=== PATIENT | female | born 1940 | race Hispanic/Latino ===

== ENCOUNTER 2020-07-18 12:30 | Inpatient (IN) ==
[2020-07-18] MEDS ORDERED: ACETAMINOPHEN 325 MG TABLET PO PRN (16:21)
[2020-07-18] MEDS ORDERED: AZITHROMYCIN 250 MG TABLET PO STA (16:21)
[2020-07-18] MEDS ORDERED: REMDESIVIR 200 MG in NORMAL SALINE 210 ML IV ONE (16:32)
[2020-07-18 17:50] LABS: Hematocrit 40.8 % (37.0-47.0); Hemoglobin 13.3 gm/dL (12.5-16.0); Mean Cell Volume 97.8 fl (78-100); Mean Corpuscular Hemoglobin 31.9 pg (27-31); Mean Corpuscular Hgb Conc 32.6 g/dl (32-36); Mean Platelet Volume 10.3 fl (8-12.5); Neutrophil # 3.7 K/mm3 (1.3-6.0); Neutrophil % 65.6 % (42-75.0); Platelet Count 155 K/mm3 (150-450); Red Blood Count 4.17 M/mm3 (4.2-5.4); White Blood Count 5.7 K/mm3 (4.0-10.5)
[2020-07-18] MEDS: ENOXAPARIN SODIUM 40 MG/0.4 ML SYRG SC SCH (17:55)
[2020-07-18] MEDS: DEXAMETHASONE SODIUM PHOSP/PF 10 MG/ML VIAL IV SCH (18:08)
[2020-07-18 18:15] LABS: Anion Gap 16.2 mmol/L (6.8-13.8); BUN/Creatinine Ratio 18.8 (9.0-21.6); Bilirubin, Total 0.7 mg/dL (0.0-1.1); Ca. Corrected For Albumin 9.3 mg/dL (8.4-10.2); Calcium * 8.8 mg/dL (7.9-10.9); Potassium 4.2 mmol/L (3.4-4.6); Total Protein 7.2 gm/dL (6.2-8.2)
--- NOTE | 2020-07-18 23:23 | HP ---
Chief Complaint - Chief Complaint Date of Service: 07/18/20 Time of Service: 17:00 Chief Complaint: Shortness of breath History of Present Illness: Brittni is a 79 yo female presenting to the respiratory clinic today for worsening shortness of breath. She reports a week ago she started having diarrhea and a cough. Since then she has progressively been worse with shortness of breath, weakness, decreased appetite, and fatigue. Today the shortness of breath was bad enough she came to the respiratory clinic. There she was found to be hypoxic with ambulation. They called the medicine publications sales representative for admission. Prior to admission she required rapid COVID testing which was positive. Medical History (Last Reviewed 07/18/20 @ 19:23 by Arpan Webber RN) History of hormone replacement therapy Onset Date: Unknown Hypertension Onset Date: Unknown Hypothyroidism Onset Date: Unknown Osteoarthritis Onset Date: Unknown Stress incontinence Onset Date: Unknown Surgical History: Surgical History (Last Reviewed 07/18/20 @ 19:24 by Arpan Webber RN) H/O arthroscopic knee surgery Onset Date: 2006 left H/O arthroscopy of right knee Onset Date: Unknown July 2014, Dr. Daniels H/O bladder repair surgery Onset Date: 1977 H/O colonoscopy Onset Date: 06/2017 H/O: hysterectomy Onset Date: Unknown History of appendectomy Onset Date: Unknown History of cholecystectomy Onset Date: Unknown History of knee replacement procedure of left knee Onset Date: 2006 S/P repair of ligament of ankle Onset Date: 1990 Family History: Family History (Last Reviewed 07/18/20 @ 19:24 by Arpan Webber RN) Brother Diabetes Father Heart disease Social History: (Last Updated 07/18/20 @ 19:25 by Arpan Webber RN) Social History: adopted: No foster care: No care home: No Marital status: / lives independently: Yes household members: spouse number of children: 2 caregiver/support person: No current occupational status: retired current occupational exposures/hazards: No Previous occupational history: office worker Highest level of school completed/degree received: high school graduate Service: No Tobacco: Smoking Status: Never smoker Alcohol: alcohol intake: never Substance Use: substance use type: does not use Dietary Habits: caffeine: Yes caffeine comment: rarely Type: coffee Review Of Systems (GEN) - Review of Systems Generalized/Overall Review: Present: Weakness, Chills, Fatigue EENTM: Present: No Symptoms Reported Respiratory: Present: Cough, Shortness of Breath Cardiac: Absent: Chest Pain, Edema, Palpitations Abdominal: Present: Nausea, Diarrhea. Absent: Vomiting, Abdominal Pain Genitourinary: Absent: Burning, Frequency Musculoskeletal: Present: No Symptoms Reported Neurological: Present: Weakness. Absent: Headache Skin: Present: No Symptoms Reported Endocrine: Present: No Symptoms Reported Misc: All systems neg except as marked Allergies/Adverse Reactions: Allergies Allergy/AdvReac Type Severity Reaction Status Date / Time Sulfa (Sulfonamide Allergy RASH Verified 07/18/20 12:35 Antibiotics) Home Medications: HOME MEDICATIONS bimatoprost 0.01 % eye drops 1 drp OP DAILY 02/19/18 [Last Taken Unknown] calcium carbonate-vitamin D3 600 mg calcium-200 unit capsule cap PO DAILY cap 02/19/18 [Last Taken Unknown] multivitamin 1 tab PO DAILY 02/19/18 [Last Taken Unknown] vitamin B complex 1 tab PO DAILY 02/19/18 [Last Taken Unknown] cholestyramine (with sugar) 4 gram powder for susp in a packet 4 g PO DAILY PRN 05/18/19 [Last Taken Unknown] lactobacillus combination no.8 3 billion cell capsule 3,000 mmu cells PO DAILY 08/26/19 [Last Taken Unknown] gabapentin 300 mg capsule 300 mg PO TID #270 cap 12/06/19 [Last Taken Unknown] meclizine 25 mg tablet 25 mg PO TID-QID PRN #100 tab 01/20/20 [Last Taken Unkn own] nabumetone 500 mg tablet 500 mg PO BID #180 tab 03/20/20 [Last Taken Unknown] ramipril 10 mg capsule 20 mg PO DAILY #180 cap 03/20/20 [Last Taken Unknown] levothyroxine 50 mcg tablet 50 mcg PO DAILY #90 tab 05/15/20 [Last Taken Unknown] atenolol 100 mg tablet 100 mg PO DAILY #90 tab 06/12/20 [Last Taken Unknown] Exam - Exam Vital Signs: Vital Signs - Last Taken Temp 36.2 C 07/18/20 21:51 Pulse 67 07/18/20 21:51 Resp 20 07/18/20 21:51 BP 162/81 H 07/18/20 21:51 Pulse Ox 99 07/18/20 22:50 Constitutional: Present: Alert, Oriented x3, Cooperative ENT Exam: Present: hearing grossly normal Eye Exam: bilateral eye: normal inspection Respiratory: Present: rales - bilateral Cardiovascular/Chest: Present: regular rate, rhythm, no murmur Peripheral Pulses: radial (R): 2+, radial (L): 2+ Abdomen: Present: Normal bowel sounds, soft, nontender, nondistended, no rebound tenderness Skin Exam: Present: normal color, warm/dry, no cyanosis Neurologic: Present: alert, normal mood/affect, oriented x 3 Appearance: Present: appropriate appearance, appropriate insight, neat Eye contact: Present: cooperative, good eye contact, normal speech Thoughts: Present: normal thought pattern, no apparent hallucination Diagnostic Studies: Abnormal Lab Results 07/18/20 07/18/20 Range/Units 17:34 17:39 RBC 4.17 L (4.2-5.4) M/mm3 MCH 31.9 H (27-31) pg Immature Gran % (Auto) 0.50 H (0.001-0.429) % Monocytes % 9.4 H (0.0-9) % Lymphocytes # 1.32 L (1.5-3.5) k/mm3 Carbon Dioxide 23.0 L (24-32.6) mmol/L Anion Gap 16.2 H (6.8-13.8) mmol/L AST 70 H (0-48) U/L Albumin 3.0 L (3.4-5.0) gm/dl Laboratory Results WBC 5.7 K/mm3 (4.0-10.5) 07/18/20 17:34 RBC 4.17 M/mm3 (4.2-5.4) L 07/18/20 17:34 Hgb 13.3 gm/dL (12.5-16.0) 07/18/20 17:34 Hct 40.8 % (37.0-47.0) 07/18/20 17:34 MCV 97.8 fl (78-100) 07/18/20 17:34 MCH 31.9 pg (27-31) H 07/18/20 17:34 MCHC 32.6 g/dl (32-36) 07/18/20 17:34 RDW 13.0 % (11.5-14.0) 07/18/20 17:34 Plt Count 155 K/mm3 (150-450) 07/18/20 17:34 MPV 10.3 fl (8-12.5) 07/18/20 17:34 Immature Gran % (Auto) 0.50 % (0.001-0.429) H 07/18/20 17:34 Immature Gran # (Auto) 0.03 K/mm3 (0.000-0.0310) 07/18/20 17:34 Neutrophils % 65.6 % (42-75.0) 07/18/20 17:34 Lymphocytes % 23.4 % (20-51) 07/18/20 17:34 Monocytes % 9.4 % (0.0-9) H 07/18/20 17:34 Eosinophils % 0.9 % (0.0-3.0) 07/18/20 17:34 Basophils % 0.2 % (0.0-1.0) 07/18/20 17:34 Nucleated RBC % 0.0 k/mm3 (0-1) 07/18/20 17:34 Neutrophils # 3.7 K/mm3 (1.3-6.0) 07/18/20 17:34 Lymphocytes # 1.32 k/mm3 (1.5-3.5) L 07/18/20 17:34 Monocytes # 0.5 k/mm3 (0.0-1.0) 07/18/20 17:34 Eosinophils # 0.1 k/mm3 (0.0-0.7) 07/18/20 17:34 Absolute Basophils 0.0 k/mm3 (0.0-0.1) 07/18/20 17:34 Sodium 132 mmol/L (132-142) 07/18/20 17:39 Plasma Sodium 132 mmol/L (130-142) 07/18/20 17:39 Potassium 4.2 mmol/L (3.4-4.6) 07/18/20 17:39 Chloride 97 mmol/L (97-106) 07/18/20 17:39 Carbon Dioxide 23.0 mmol/L (24-32.6) L 07/18/20 17:39 Anion Gap 16.2 mmol/L (6.8-13.8) H 07/18/20 17:39 BUN 16 mg/dL (3-23) 07/18/20 17:39 Creatinine 0.85 mg/dL (0.4-1.4) 07/18/20 17:39 Est GFR (Non-Af Amer) 69 mL/min (60-130) 07/18/20 17:39 BUN/Creatinine Ratio 18.8 (9.0-21.6) 07/18/20 17:39 Random Glucose 110 mg/dL (70-110) 07/18/20 17:39 Calcium 8.8 mg/dL (7.9-10.9) 07/18/20 17:39 Calcium Adj for Albumin 9.3 mg/dL (8.4-10.2) 07/18/20 17:39 Total Bilirubin 0.7 mg/dL (0.0-1.1) 07/18/20 17:39 AST 70 U/L (0-48) H 07/18/20 17:39 ALT 54 U/L (19-67) 07/18/20 17:39 Alkaline Phosphatase 65 U/L (50-170) 07/18/20 17:39 Total Protein 7.2 gm/dL (6.2-8.2) 07/18/20 17:39 Albumin 3.0 gm/dl (3.4-5.0) L 07/18/20 17:39 Assessment/Plan - Narrative Narrative: Brittni has acute respiratory failure with oxygen dropping to 88% on room air with activity and was noted to have oxygen that would dropped down to 88% even with rest while waiting for her COVID test to return. She was placed in the ER triage room and placed on 2lpm of oxygen. She has COVID19 pneumonia and will be admitted to acute inpatient. Will place on 2lpm and attempt to wean with treatment back to room air. Will treat with azithromycin, rocophin, dexamethasone, and Veklury. - Assessment/Plan (1) Acute respiratory failure due to COVID-19 Problem: Acute (2) Pneumonia due to COVID-19 virus Problem: Acute
[2020-07-19 06:52] LABS: Anion Gap 13.6 mmol/L (6.8-13.8); BUN/Creatinine Ratio 17.6 (9.0-21.6); Bilirubin, Total 0.4 mg/dL (0.0-1.1); Ca. Corrected For Albumin 9.2 mg/dL (8.4-10.2); Calcium * 8.7 mg/dL (7.9-10.9); Carbon Dioxide 26.4 mmol/L (24-32.6); Total Protein 7.4 gm/dL (6.2-8.2)
[2020-07-19] MEDS ORDERED: MECLIZINE HCL 25 MG TABLET PO PRN (09:22)
--- NOTE | 2020-07-19 09:52 | PN ---
Subjective - Date and Time Seen Date: 07/19/20 Time: 09:49 Subjective Narrative: Brittni reports feeling a little better, but remains extremely short of breath and has tachycardia with ambulation. She has been weaned to room air at rest. No fever. Objective - Vitals Vitals: Last Vital Signs Temp 35.6 C L 07/19/20 06:45 Pulse 65 07/19/20 06:45 Resp 20 07/19/20 06:45 BP 134/59 07/19/20 06:45 Pulse Ox 92 L 07/19/20 06:45 - Abnormal Lab Findings Abnormal Lab Findings: Abnormal Lab Results 07/18/20 07/18/20 07/19/20 Range/Units 17:34 17:39 06:34 RBC 4.17 L (4.2-5.4) M/mm3 MCH 31.9 H (27-31) pg Immature Gran % (Auto) 0.50 H (0.001-0.429) % Monocytes % 9.4 H (0.0-9) % Lymphocytes # 1.32 L (1.5-3.5) k/mm3 Carbon Dioxide 23.0 L (24-32.6) mmol/L Anion Gap 16.2 H (6.8-13.8) mmol/L Random Glucose 140 H (70-110) mg/dL AST 70 H 56 H (0-48) U/L Albumin 3.0 L 3.0 L (3.4-5.0) gm/dl - Exam Constitutional: Present: Alert, Oriented x3, Cooperative ENT Exam: Present: hearing grossly normal Respiratory: Present: rales Cardiovascular/Chest: Present: no murmur, tachycardia Abdomen: Present: Normal bowel sounds, soft, nontender, nondistended Skin Exam: Present: normal color, warm/dry, no cyanosis Appearance: Present: appropriate appearance, appropriate insight Eye contact: Present: cooperative, good eye contact, normal speech Thoughts: Present: normal thought pattern, no apparent hallucination Assessment/Plan Plan Narrative: Brittni is improved and on room air at rest. She has respiratory distress with ambulation and is not ready for discharge to home today. Will continue current treatment. Will shoot to discharge to home tomorrow with continued treatment as outpatient. Will monitor oxygen requirements with activity. - Problems/Diagnosis (1) Acute respiratory failure due to COVID-19 Problem: Acute (2) Pneumonia due to COVID-19 virus Problem: Acute
[2020-07-19] MEDS: LEVOTHYROXINE SODIUM 50 MCG TABLET PO SCH (10:13)
[2020-07-19] MEDS: LACTOBACILLUS ACIDOPHILUS 1 EACH CAPSULE PO SCH (10:13)
[2020-07-19] MEDS: AZITHROMYCIN 250 MG TABLET PO SCH (10:13)
[2020-07-19] MEDS: ENALAPRIL MALEATE 20 MG TABLET PO SCH (10:13)
[2020-07-19] MEDS: ATENOLOL 100 MG TABLET PO SCH (10:13)
[2020-07-19] MEDS: BIMATOPROST 25 DROP BTL OP SCH (10:13)
[2020-07-19] MEDS: DEXAMETHASONE SODIUM PHOSP/PF 10 MG/ML VIAL IV SCH (10:14)
[2020-07-19] MEDS: GABAPENTIN 300 MG CAPSULE PO SCH ×2 (13:19→16:44)
[2020-07-19] MEDS: ENOXAPARIN SODIUM 40 MG/0.4 ML SYRG SC SCH (16:43)
[2020-07-19] MEDS: REMDESIVIR 100 MG in NORMAL SALINE 230 ML IV SCH (19:58)
[2020-07-20] MEDS: LEVOTHYROXINE SODIUM 50 MCG TABLET PO SCH (06:33)
[2020-07-20 07:05] LABS: Albumin * 2.7 gm/dl (3.4-5.0); Anion Gap 12.5 mmol/L (6.8-13.8); BUN/Creatinine Ratio 24.7 (9.0-21.6); Bilirubin, Total 0.3 mg/dL (0.0-1.1); Calcium * 8.3 mg/dL (7.9-10.9); Carbon Dioxide 26.3 mmol/L (24-32.6); Potassium 3.8 mmol/L (3.4-4.6); Total Protein 6.8 gm/dL (6.2-8.2)
[2020-07-20] MEDS: AZITHROMYCIN 250 MG TABLET PO SCH (08:21)
[2020-07-20] MEDS: ATENOLOL 100 MG TABLET PO SCH (08:21)
[2020-07-20] MEDS: GABAPENTIN 300 MG CAPSULE PO SCH ×3 (08:21→16:44)
[2020-07-20] MEDS: MULTIVITAMINS 1 CAP CAPSULE PO SCH (08:21)
[2020-07-20] MEDS: DEXAMETHASONE SODIUM PHOSP/PF 10 MG/ML VIAL IV SCH (08:21)
[2020-07-20] MEDS: BIMATOPROST 25 DROP BTL OP SCH (08:21)
[2020-07-20] MEDS: ENALAPRIL MALEATE 20 MG TABLET PO SCH (08:21)
[2020-07-20] MEDS: LACTOBACILLUS ACIDOPHILUS 1 EACH CAPSULE PO SCH (08:21)
--- NOTE | 2020-07-20 13:02 | PN ---
Subjective - Date and Time Seen Date: 07/20/20 Time: 10:00 Subjective Narrative: She states she continues to have a cough and shortness of breath with exertion. Objective - Review of Systems Generalized/Overall Review: Denies: Fever Respiratory: Reports: Cough, Shortness of Breath Cardiac: Denies: Chest Pain Abdominal: Denies: Abdominal Pain Misc: All systems neg except as marked - Vitals Vitals: Last Vital Signs Temp 35.4 C L 07/20/20 11:17 Pulse 65 07/20/20 12:47 Resp 20 07/20/20 11:17 BP 136/77 07/20/20 11:17 Pulse Ox 97 07/20/20 11:17 - Abnormal Lab Findings Abnormal Lab Findings: Abnormal Lab Results 07/20/20 Range/Units 06:39 BUN/Creatinine Ratio 24.7 H (9.0-21.6) Random Glucose 128 H (70-110) mg/dL Albumin 2.7 L (3.4-5.0) gm/dl - Exam Constitutional: Present: Alert, Cooperative, Well developed, Well nourished, No distress, Elderly ENT Exam: Present: hearing grossly normal Neck: Present: non-tender, supple. Absent: lymphadenopathy (R), lymphadenopathy (L) Respiratory: Present: lungs clear, no respiratory distress, no accessory muscle use, crackles - Bilateral lung bases, No wheezing. Absent: rhonchi Cardiovascular/Chest: Present: normal peripheral pulses, regular rate, rhythm, no edema, no murmur Abdomen: Present: Normal bowel sounds, soft, nontender Extremity: Present: no pedal edema Skin Exam: Present: normal color, warm/dry Neurologic: Present: alert, normal mood/affect Appearance: Present: appropriate appearance, appropriate insight Eye contact: Present: cooperative Thoughts: Present: normal thought pattern, normal mood /affect Assessment/Plan Plan Narrative: 79-year-old female with a past medical history of hypertension, hypothyroidism, osteoarthritis presents from with COVID-19 pneumonia. She continues to require oxygen supplementation via nasal cannula. She is currently on remdesivir day 2, and azithromycin with ceftriaxone. Disposition is to send her to a [place] [facility] on Wednesday July 24, 2019. Plan #1 continue with remdesivir, azithromycin and ceftriaxone. #2 Taper to baseline oxygen as tolerated #3 disposition planning to [facility] #4 CBC and CMP in the morning - Problems/Diagnosis (1) Pneumonia due to COVID-19 virus Problem: Acute (2) Unstable gait Problem: Chronic (3) Hypothyroidism Problem: Chronic Qualifiers: Hypothyroidism type: acquired Qualified Code(s): E03.9 - Hypothyroidism, unspecified (4) Obesity (BMI 30.0-34.9) Problem: Chronic (5) HTN (hypertension) Problem: Chronic Qualifiers: Hypertension type: essential hypertension Qualified Code(s): I10 - Essential (primary) hypertension (6) Acute respiratory failure due to COVID-19 Problem: Acute
[2020-07-20] MEDS: ENOXAPARIN SODIUM 40 MG/0.4 ML SYRG SC SCH (16:45)
[2020-07-20] MEDS: REMDESIVIR 100 MG in NORMAL SALINE 230 ML IV SCH (19:20)
[2020-07-21] MEDS: LEVOTHYROXINE SODIUM 50 MCG TABLET PO SCH (06:37)
[2020-07-21 07:00] LABS: Albumin * 2.7 gm/dl (3.4-5.0); Anion Gap 12.5 mmol/L (6.8-13.8); Bilirubin, Total 0.4 mg/dL (0.0-1.1); Ca. Corrected For Albumin 8.7 mg/dL (8.4-10.2); Carbon Dioxide 27.2 mmol/L (24-32.6); Potassium 3.7 mmol/L (3.4-4.6); Total Protein 6.6 gm/dL (6.2-8.2)
[2020-07-21 07:01] LABS: Hematocrit 39.8 % (37.0-47.0); Hemoglobin 13.5 gm/dL (12.5-16.0); Mean Cell Volume 94.3 fl (78-100); Mean Corpuscular Hgb Conc 33.9 g/dl (32-36); Mean Platelet Volume 10.4 fl (8-12.5); Neutrophil # 9.1 K/mm3 (1.3-6.0); Neutrophil % 77.7 % (42-75.0); Platelet Count 253 K/mm3 (150-450); Red Blood Count 4.22 M/mm3 (4.2-5.4); Red Cell Distribution Width 12.9 % (11.5-14.0); White Blood Count 11.8 K/mm3 (4.0-10.5)
[2020-07-21] MEDS: MULTIVITAMINS 1 CAP CAPSULE PO SCH (09:08)
[2020-07-21] MEDS: LACTOBACILLUS ACIDOPHILUS 1 EACH CAPSULE PO SCH (09:08)
[2020-07-21] MEDS: AZITHROMYCIN 250 MG TABLET PO SCH (09:08)
[2020-07-21] MEDS: GABAPENTIN 300 MG CAPSULE PO SCH ×3 (09:08→16:35)
[2020-07-21] MEDS: ENALAPRIL MALEATE 20 MG TABLET PO SCH (09:08)
[2020-07-21] MEDS: BIMATOPROST 25 DROP BTL OP SCH (09:09)
[2020-07-21] MEDS: DEXAMETHASONE SODIUM PHOSP/PF 10 MG/ML VIAL IV SCH (09:09)
[2020-07-21] MEDS: ATENOLOL 100 MG TABLET PO SCH (09:09)
[2020-07-21] MEDS: ENOXAPARIN SODIUM 40 MG/0.4 ML SYRG SC SCH (16:34)
--- NOTE | 2020-07-21 16:51 | PN ---
Subjective - Date and Time Seen Date: 07/21/20 Time: 13:51 Subjective Narrative: She feels well today. She feels like her breathing is improving. She is on the appropriate medications. SHe has no concerns today. Waiting for placement Objective - Review of Systems Generalized/Overall Review: Reports: No Symptoms Reported EENTM: Reports: No Symptoms Reported Respiratory: Reports: Shortness of Breath. Denies: Cough Cardiac: Denies: Chest Pain, Edema Abdominal: Reports: No Symptoms Reported Genitourinary Symptoms: Reports: No Symptoms Reported Neurological: Reports: No Symptoms Reported Skin: Reports: No Symptoms Reported Endocrine: Reports: No Symptoms Reported - Vitals Vitals: Last Vital Signs Temp 96.6 C H 07/21/20 14:21 Pulse 61 07/21/20 14:21 Resp 24 H 07/21/20 14:21 BP 128/75 07/21/20 14:21 Pulse Ox 98 07/21/20 14:21 - Abnormal Lab Findings Abnormal Lab Findings: Abnormal Lab Results 07/21/20 07/21/20 Range/Units 06:30 06:30 WBC 11.8 H D (4.0-10.5) K/mm3 MCH 32.0 H (27-31) pg Immature Gran % (Auto) 0.90 H (0.001-0.429) % Immature Gran # (Auto) 0.10 H (0.000-0.0310) K/mm3 Neutrophils % 77.7 H (42-75.0) % Lymphocytes % 12.9 L (20-51) % Neutrophils # 9.1 H (1.3-6.0) K/mm3 BUN/Creatinine Ratio 25.0 H (9.0-21.6) Random Glucose 127 H (70-110) mg/dL Albumin 2.7 L (3.4-5.0) gm/dl - Exam Constitutional: Present: Alert, Oriented x3, No distress, Elderly Respiratory: Present: lungs clear, normal breath sounds Cardiovascular/Chest: Present: regular rate, rhythm. Absent: systolic murmur Abdomen: Present: soft, nontender, nondistended Appearance: Present: appropriate appearance, appropriate insight Eye contact: Present: cooperative, good eye contact Thoughts: Present: normal thought pattern, normal mood /affect Assessment/Plan Plan Narrative: PAtient on appropriate tx for covid PNA, hypoxia improved with o2 via NC. Continue lovenix, decadron. Awaiting placement. Will order PT for weakness. HTN well controlled. - Problems/Diagnosis (1) Pneumonia due to COVID-19 virus Problem: Acute (2) Hypothyroidism Problem: Chronic Qualifiers: Hypothyroidism type: acquired Qualified Code(s): E03.9 - Hypothyroidism, unspecified (3) Obesity (BMI 30.0-34.9) Problem: Chronic (4) HTN (hypertension) Problem: Chronic Qualifiers: Hypertension type: essential hypertension Qualified Code(s): I10 - Essential (primary) hypertension
[2020-07-21] MEDS: REMDESIVIR 100 MG in NORMAL SALINE 230 ML IV SCH (19:44)
[2020-07-22 06:30] LABS: Albumin * 2.6 gm/dl (3.4-5.0); Anion Gap 13.5 mmol/L (6.8-13.8); BUN/Creatinine Ratio 30.8 (9.0-21.6); Bilirubin, Total 0.4 mg/dL (0.0-1.1); Ca. Corrected For Albumin 8.3 mg/dL (8.4-10.2); Calcium * 7.5 mg/dL (7.9-10.9); Carbon Dioxide 25.2 mmol/L (24-32.6); Potassium 3.7 mmol/L (3.4-4.6)
[2020-07-22] MEDS: LEVOTHYROXINE SODIUM 50 MCG TABLET PO SCH (06:31)
[2020-07-22] MEDS: GABAPENTIN 300 MG CAPSULE PO SCH ×3 (08:13→16:52)
[2020-07-22] MEDS: AZITHROMYCIN 250 MG TABLET PO SCH (08:13)
[2020-07-22] MEDS: LACTOBACILLUS ACIDOPHILUS 1 EACH CAPSULE PO SCH (08:13)
[2020-07-22] MEDS: ENALAPRIL MALEATE 20 MG TABLET PO SCH (08:13)
[2020-07-22] MEDS: ATENOLOL 100 MG TABLET PO SCH (08:14)
[2020-07-22] MEDS: MULTIVITAMINS 1 CAP CAPSULE PO SCH (08:14)
[2020-07-22] MEDS: DEXAMETHASONE SODIUM PHOSP/PF 10 MG/ML VIAL IV SCH (08:14)
[2020-07-22] MEDS: BIMATOPROST 25 DROP BTL OP SCH (08:14)
[2020-07-22] MEDS: ENOXAPARIN SODIUM 40 MG/0.4 ML SYRG SC SCH (16:52)
[2020-07-22] MEDS: REMDESIVIR 100 MG in NORMAL SALINE 230 ML IV SCH (19:20)
--- NOTE | 2020-07-23 05:21 | PN ---
Subjective - Date and Time Seen Date: 07/23/20 Time: 10:15 Subjective Narrative: Brittni reports shortness of breath with any activity. She is currently on 2lpm continuous. No fever, chills, nausea, or vomiting. Objective - Vitals Vitals: Last Vital Signs Temp 36.3 C 07/23/20 02:02 Pulse 72 07/23/20 02:02 Resp 19 07/23/20 02:02 BP 157/77 H 07/23/20 02:02 Pulse Ox 92 L 07/23/20 02:02 - Abnormal Lab Findings Abnormal Lab Findings: Abnormal Lab Results 07/22/20 Range/Units 05:40 BUN/Creatinine Ratio 30.8 H (9.0-21.6) Random Glucose 117 H (70-110) mg/dL Calcium 7.5 L (7.9-10.9) mg/dL Calcium Adj for Albumin 8.3 L (8.4-10.2) mg/dL Total Protein 6.0 L (6.2-8.2) gm/dL Albumin 2.6 L (3.4-5.0) gm/dl - Exam Constitutional: Present: Alert, Oriented x3, Cooperative ENT Exam: Present: hearing grossly normal Respiratory: Present: lungs clear, no respiratory distress Cardiovascular/Chest: Present: regular rate, rhythm, no murmur Abdomen: Present: Normal bowel sounds, soft, nontender, nondistended Skin Exam: Present: normal color, warm/dry, no cyanosis Assessment/Plan Plan Narrative: Continue treatment, and continue to wean off of oxygen as able. She will continue to work on strengthening endurance with activity. - Problems/Diagnosis (1) Acute respiratory failure due to COVID-19 Problem: Acute (2) Pneumonia due to COVID-19 virus Problem: Acute
[2020-07-23] MEDS: LEVOTHYROXINE SODIUM 50 MCG TABLET PO SCH (07:21)
[2020-07-23 08:09] LABS: Albumin * 2.8 gm/dl (3.4-5.0); Anion Gap 10.7 mmol/L (6.8-13.8); BUN/Creatinine Ratio 18.1 (9.0-21.6); Bilirubin, Total 0.7 mg/dL (0.0-1.1); Ca. Corrected For Albumin 8.9 mg/dL (8.4-10.2); Calcium * 8.3 mg/dL (7.9-10.9); Carbon Dioxide 29.1 mmol/L (24-32.6); Potassium 3.8 mmol/L (3.4-4.6); Total Protein 7.3 gm/dL (6.2-8.2)
[2020-07-23] MEDS: LACTOBACILLUS ACIDOPHILUS 1 EACH CAPSULE PO SCH (08:59)
[2020-07-23] MEDS: ENALAPRIL MALEATE 20 MG TABLET PO SCH (08:59)
[2020-07-23] MEDS: GABAPENTIN 300 MG CAPSULE PO SCH ×3 (08:59→17:24)
[2020-07-23] MEDS: DEXAMETHASONE SODIUM PHOSP/PF 10 MG/ML VIAL IV SCH (09:00)
[2020-07-23] MEDS: ATENOLOL 100 MG TABLET PO SCH (09:00)
[2020-07-23] MEDS: MULTIVITAMINS 1 CAP CAPSULE PO SCH (09:00)
[2020-07-23] MEDS: BIMATOPROST 25 DROP BTL OP SCH (13:56)
[2020-07-23] MEDS: ENOXAPARIN SODIUM 40 MG/0.4 ML SYRG SC SCH (17:24)
--- NOTE | 2020-07-23 22:00 | PN ---
Subjective - Date and Time Seen Date: 07/23/20 Time: 09:00 Subjective Narrative: Brittni feels better today. She had been increased to 5lpm of oxygen to keep sats >90%. No fever, chills, nausea, vomiting. Eating well. Objective - Vitals Vitals: Last Vital Signs Temp 36 C 07/23/20 17:59 Pulse 67 07/23/20 17:59 Resp 27 H 07/23/20 17:59 BP 115/64 07/23/20 17:59 Pulse Ox 97 07/23/20 17:59 - Abnormal Lab Findings Abnormal Lab Findings: Abnormal Lab Results 07/23/20 Range/Units 07:46 Random Glucose 116 H (70-110) mg/dL Albumin 2.8 L (3.4-5.0) gm/dl - Exam Constitutional: Present: Alert, Oriented x3, Cooperative Respiratory: Present: lungs clear, normal breath sounds Cardiovascular/Chest: Present: regular rate, rhythm, no edema Abdomen: Present: Normal bowel sounds, soft, nontender Skin Exam: Present: normal color, warm/dry, no cyanosis Assessment/Plan Plan Narrative: Still requiring 5lpm of oxygen, but she is feeling well. Will continue attempt to wean from oxygen. She may need discharged to SNF with oxygen for a longer weaning attempt. Continue treatment, no changes today. - Problems/Diagnosis (1) Acute respiratory failure due to COVID-19 Problem: Acute (2) Pneumonia due to COVID-19 virus Problem: Acute
[2020-07-24] MEDS: LEVOTHYROXINE SODIUM 50 MCG TABLET PO SCH (06:55)
[2020-07-24] MEDS: ENALAPRIL MALEATE 20 MG TABLET PO SCH (09:28)
[2020-07-24] MEDS: MULTIVITAMINS 1 CAP CAPSULE PO SCH (09:28)
[2020-07-24] MEDS: GABAPENTIN 300 MG CAPSULE PO SCH ×3 (09:28→16:39)
[2020-07-24] MEDS: ATENOLOL 100 MG TABLET PO SCH (09:28)
[2020-07-24] MEDS: LACTOBACILLUS ACIDOPHILUS 1 EACH CAPSULE PO SCH (09:28)
[2020-07-24] MEDS: DEXAMETHASONE SODIUM PHOSP/PF 10 MG/ML VIAL IV SCH (09:29)
[2020-07-24] MEDS: BIMATOPROST 25 DROP BTL OP SCH (09:29)
--- NOTE | 2020-07-24 12:40 | PN ---
Subjective - Date and Time Seen Date: 07/24/20 Time: 09:45 Subjective Narrative: She states she better since admission. She continues to have a dry cough. She is tolerating her diet. She continues to get more short of breath with activity. Objective - Review of Systems Generalized/Overall Review: Denies: Fever Respiratory: Reports: Cough, Shortness of Breath Abdominal: Denies: Abdominal Pain Misc: All systems neg except as marked - Vitals Vitals: Last Vital Signs Temp 36.2 C 07/24/20 10:40 Pulse 81 07/24/20 10:40 Resp 18 07/24/20 11:20 BP 136/47 07/24/20 10:40 Pulse Ox 97 07/24/20 11:20 - Exam Constitutional: Present: Alert, Cooperative, Well developed, Well nourished, No distress, Elderly ENT Exam: Present: hearing grossly normal Neck: Present: non-tender, supple. Absent: lymphadenopathy (R), lymphadenopathy (L) Respiratory: Present: lungs clear, no respiratory distress, no accessory muscle use, No wheezing. Absent: crackles, rhonchi Cardiovascular/Chest: Present: normal peripheral pulses, regular rate, rhythm, no edema, no murmur Abdomen: Present: Normal bowel sounds, soft, nontender Extremity: Present: no pedal edema Skin Exam: Present: normal color, warm/dry Neurologic: Present: alert, normal mood/affect Appearance: Present: appropriate appearance Eye contact: Present: cooperative Thoughts: Present: normal mood /affect Assessment/Plan Plan Narrative: 79-year-old female with a past medical history of hypertension, hypothyroidism, osteoarthritis presents from with COVID-19 pneumonia. She continues to require oxygen supplementation via nasal cannula. She is currently on remdesivir day 2, and azithromycin with ceftriaxone. She became hypoxic with activity this morning and required 15 L of oxygen. She is currently back down to 5 L of oxygen. She is not stable for discharge to [facility] at this time. We will continue to observe her overnight. Plan #1 She completed a course of remdesivir and azithromycin. She is on ceftriaxone, day 6. #2 Taper to baseline oxygen as tolerated #3 disposition planning to [facility] #4 CBC and CMP in the morning - Problems/Diagnosis (1) Pneumonia due to COVID-19 virus Problem: Acute (2) Unstable gait Problem: Chronic (3) Hypothyroidism Problem: Chronic Qualifiers: Hypothyroidism type: acquired Qualified Code(s): E03.9 - Hypothyroidism, unspecified (4) Obesity (BMI 30.0-34.9) Problem: Chronic (5) HTN (hypertension) Problem: Chronic Qualifiers: Hypertension type: essential hypertension Qualified Code(s): I10 - Essential (primary) hypertension (6) Acute respiratory failure due to COVID-19 Problem: Acute
[2020-07-24] MEDS: ENOXAPARIN SODIUM 40 MG/0.4 ML SYRG SC SCH (16:39)
[2020-07-25] MEDS: LEVOTHYROXINE SODIUM 50 MCG TABLET PO SCH (06:47)
[2020-07-25] MEDS: MULTIVITAMINS 1 CAP CAPSULE PO SCH (08:48)
[2020-07-25] MEDS: GABAPENTIN 300 MG CAPSULE PO SCH ×3 (08:48→16:02)
[2020-07-25] MEDS: LACTOBACILLUS ACIDOPHILUS 1 EACH CAPSULE PO SCH (08:48)
[2020-07-25] MEDS: ATENOLOL 100 MG TABLET PO SCH (08:48)
[2020-07-25] MEDS: DEXAMETHASONE SODIUM PHOSP/PF 10 MG/ML VIAL IV SCH (08:49)
[2020-07-25] MEDS: ENALAPRIL MALEATE 20 MG TABLET PO SCH (08:49)
[2020-07-25] MEDS: BIMATOPROST 25 DROP BTL OP SCH (08:49)
--- NOTE | 2020-07-25 10:03 | DS ---
(1) Pneumonia due to COVID-19 virus Problem: Acute (2) Unstable gait Problem: Chronic (3) Hypothyroidism Problem: Chronic Qualifiers: Hypothyroidism type: acquired Qualified Code(s): E03.9 - Hypothyroidism, unspecified (4) Obesity (BMI 30.0-34.9) Problem: Chronic (5) HTN (hypertension) Problem: Chronic Qualifiers: Hypertension type: essential hypertension Qualified Code(s): I10 - Essential (primary) hypertension (6) Acute respiratory failure due to COVID-19 Problem: Acute Hospital Course: 79-year-old female with a past medical history of hypertension, hypothyroidism, osteoarthritis presents from with COVID-19 pneumonia. She continues to require oxygen supplementation via nasal cannula. She is was started on remdesivir, azithromycin with ceftriaxone. She had one episode of worsening hypoxia with activity and required 15 L of high flow oxygen. Since then she has been stable on 3 to 5 L of oxygen even with activity. She is tolerating her diet. She has completed her course of r emdesivir, azithromycin and ceftriaxone. She is stable to be discharged to [facility] today. She will need skilled therapy for strengthening. She can be weaned down on the oxygen at the correction. The patient remained hospitalized for 1 more day due to staffing issues the correction was not able to take her on July 25, 2020. She had no new events and remained stable overnight. She is stable to be discharged to [facility] today, July 26, 2020. Procedures Performed: none Results and Findings: Lab Pending Results 07/18/20 17:34: WBC 5.7, RBC 4.17 L, Hgb 13.3, Hct 40.8, MCV 97.8, MCH 31.9 H, MCHC 32.6, RDW 13.0, Plt Count 155, MPV 10.3, Immature Gran % (Auto) 0.50 H, Immature Gran # (Auto) 0.03, Neutrophils % 65.6, Lymphocytes % 23.4, Monocytes % 9.4 H, Eosinophils % 0.9, Basophils % 0.2, Nucleated RBC % 0.0, Neutrophils # 3.7, Lymphocytes # 1.32 L, Monocytes # 0.5, Eosinophils # 0.1, Absolute Basophils 0.0 07/18/20 17:39: Sodium 132, Plasma Sodium 132, Potassium 4.2, Chloride 97, Carbon Dioxide 23.0 L, Anion Gap 16.2 H, BUN 16, Creatinine 0.85, Est GFR (Non- Af Amer) 69, BUN/Creatinine Ratio 18.8, Random Glucose 110, Calcium 8.8, Calcium Adj for Albumin 9.3, Total Bilirubin 0.7, AST 70 H, ALT 54, Alkaline Phosphatase 65, Total Protein 7.2, Albumin 3.0 L 07/19/20 06:34: Sodium 138, Plasma Sodium 139, Potassium 4.0, Chloride 102, Carbon Dioxide 26.4, Anion Gap 13.6, BUN 15, Creatinine 0.85, Est GFR (Non-Af Amer) 69, BUN/Creatinine Ratio 17.6, Random Glucose 140 H, Calcium 8.7, Calcium Adj for Albumin 9.2, Total Bilirubin 0.4, AST 56 H, ALT 53, Alkaline Phosphatase 62, Total Protein 7.4, Albumin 3.0 L 07/20/20 06:39: Sodium 140, Plasma Sodium 140, Potassium 3.8, Chloride 105, Carbon Dioxide 26.3, Anion Gap 12.5, BUN 20, Creatinine 0.81, Est GFR (Non-Af Amer) 72, BUN/Creatinine Ratio 24.7 H, Random Glucose 128 H, Calcium 8.3, Calcium Adj for Albumin 9.0, Total Bilirubin 0.3, AST 42, ALT 42, Alkaline Phosphatase 66, Total Protein 6.8, Albumin 2.7 L 07/21/20 06:30: WBC 11.8 H D, RBC 4.22, Hgb 13.5, Hct 39.8, MCV 94.3, MCH 32.0 H, MCHC 33.9, RDW 12.9, Plt Count 253, MPV 10.4, Immature Gran % (Auto) 0.90 H, Immature Gran # (Auto) 0.10 H, Neutrophils % 77.7 H, Lymphocytes % 12.9 L, Monocytes % 8.3, Eosinophils % 0.0, Basophils % 0.2, Nucleated RBC % 0.0, Neutrophils # 9.1 H, Lymphocytes # 1.51, Monocytes # 1.0, Eosinophils # 0.0, Absolute Basophils 0.0 07/21/20 06:30: Sodium 140, Plasma Sodium 140, Potassium 3.7, Chloride 104, Carbon Dioxide 27.2, Anion Gap 12.5, BUN 18, Creatinine 0.72, Est GFR (Non-Af Amer) 83, BUN/Creatinine Ratio 25.0 H, Random Glucose 127 H, Calcium 8.0, Calcium Adj for Albumin 8.7, Total Bilirubin 0.4, AST 33, ALT 37, Alkaline Phosphatase 62, Total Protein 6.6, Albumin 2.7 L 07/22/20 05:40: Sodium 140, Plasma Sodium 140, Potassium 3.7, Chloride 105, Carbon Dioxide 25.2, Anion Gap 13.5, BUN 20, Creatinine 0.65, Est GFR (Non-Af Amer) 93, BUN/Creatinine Ratio 30.8 H, Random Glucose 117 H, Calcium 7.5 L, Calcium Adj for Albumin 8.3 L, Total Bilirubin 0.4, AST 30, ALT 34, Alkaline Phosphatase 66, Total Protein 6.0 L, Albumin 2.6 L 07/23/20 07:46: Sodium 138, Plasma Sodium 138, Potassium 3.8, Chloride 102, Carbon Dioxide 29.1, Anion Gap 10.7, BUN 15, Creatinine 0.83, Est GFR (Non-Af Amer) 70 D, BUN/Creatinine Ratio 18.1, Random Glucose 116 H, Calcium 8.3, Calcium Adj for Albumin 8.9, Total Bilirubin 0.7, AST 27, ALT 33, Alkaline Phosphatase 80, Total Protein 7.3, Albumin 2.8 L Discharge Location: [facility] Disposition: SNF Condition: Stable Level of Care: SNF Discharge Activity: Activity as tolerated Discharge Diet: General/regular food Long Term Therapy: Physical Therapy, Occupation Therapy Referrals: Desiree Walters MD [Primary Care Provider] - Additional Patient Instructions (free text): [facility] SNF for PT and OT to evaluate and treat. Please call and fax discharge information to them. Dr. Walters will do a tele health follow up on August 02 at 2:45 p.m. Continue with oxygen supplementation at 3 to 5 L via nasal cannula. Goal O2 saturation is greater than 90%. Complete Home Medications List: Complete Home Medication List: bimatoprost 0.01 % eye drops 1 drp OP DAILY 02/19/18 multivitamin 1 tab PO DAILY 02/19/18 vitamin B complex 1 tab PO DAILY 02/19/18 cholestyramine (with sugar) 4 gram powder for susp in a packet 4 g PO DAILY PRN 05/18/19 lactobacillus combination no.8 3 billion cell capsule 3,000 mmu cells PO DAILY 08/26/19 gabapentin 300 mg capsule 300 mg PO TID #270 cap 12/06/19 meclizine 25 mg tablet 25 mg PO TID-QID PRN #100 tab 01/20/20 nabumetone 500 mg tablet 500 mg PO BID #180 tab 03/20/20 ramipril 10 mg capsule 20 mg PO DAILY #180 cap 03/20/20 levothyroxine 50 mcg tablet 50 mcg PO DAILY #90 tab 05/15/20 atenolol 100 mg tablet 100 mg PO DAILY #90 tab 06/12/20 Calcium Carb, Citrate/Vit D3 [Calcium + D3 ER Tablet] 1 ea PO DAILY 07/19/20 Forms: Patient Portal Registration
--- NOTE | 2020-07-25 10:36 | PN ---
Subjective - Date and Time Seen Date: 07/25/20 Time: 09:15 Subjective Narrative: She states she feels better today. She continues to have a dry cough. She is tolerating her diet. She does get short of breath with activity but is able to recover if she takes her time. Objective - Review of Systems Generalized/Overall Review: Denies: Fever Respiratory: Reports: Cough, Shortness of Breath Cardiac: Denies: Chest Pain Abdominal: Denies: Abdominal Pain Misc: All systems neg except as marked - Vitals Vitals: Last Vital Signs Temp 35.9 C L 07/25/20 10:21 Pulse 74 07/25/20 10:21 Resp 18 07/25/20 10:21 BP 125/63 07/25/20 10:21 Pulse Ox 3 L 07/25/20 10:21 - Exam Constitutional: Present: Alert, Cooperative, Well developed, Well nourished, No distress, Elderly, Obese ENT Exam: Present: hearing grossly normal Neck: Present: supple. Absent: lymphadenopathy (R), lymphadenopathy (L) Respiratory: Present: no respiratory distress, no accessory muscle use, crackles - Bilateral lung bases, No wheezing. Absent: rhonchi Cardiovascular/Chest: Present: normal peripheral pulses, regular rate, rhythm, no edema, no murmur Abdomen: Present: Normal bowel sounds, soft, nontender Extremity: Present: no pedal edema Skin Exam: Present: normal color, warm/dry Neurologic: Present: alert, normal mood/affect Appearance: Present: appropriate appearance, appropriate insight Eye contact: Present: cooperative Thoughts: Present: normal thought pattern, normal mood /affect Assessment/Plan Plan Narrative: 79-year-old female with a past medical history of hypertension, hypothyroidism, osteoarthritis presents from with COVID-19 pneumonia. She continues to require oxygen supplementation via nasal cannula. She was placed on remdesivir, azithromycin and ceftriaxone. She is doing better today and has been stable on 3 to 5 L of oxygen via nasal cannula. She does desaturate with activity but recovers if she takes her time. She is tolerating her diet well. Stable for discharge today however [facility] does not have staff. I will continue to observe her overnight and plan for discharge tomorrow. Plan #1 She completed a course of remdesivir and azithromycin and ceftriaxone. #2 Taper to baseline oxygen as tolerated, goal greater than 90% #3 disposition planning to [facility] #3 continue dexamethasone #4 continue home medications for comorbidities - Problems/Diagnosis (1) Pneumonia due to COVID-19 virus Problem: Acute (2) Unstable gait Problem: Chronic (3) Hypothyroidism Problem: Chronic Qualifiers: Hypothyroidism type: acquired Qualified Code(s): E03.9 - Hypothyroidism, unspecified (4) Obesity (BMI 30.0-34.9) Problem: Chronic (5) HTN (hypertension) Problem: Chronic Qualifiers: Hypertension type: essential hypertension Qualified Code(s): I10 - Essential (primary) hypertension (6) Acute respiratory failure due to COVID-19 Problem: Acute
[2020-07-25] MEDS: ENOXAPARIN SODIUM 40 MG/0.4 ML SYRG SC SCH (16:33)
[2020-07-26] MEDS: LEVOTHYROXINE SODIUM 50 MCG TABLET PO SCH (06:20)
[2020-07-26] MEDS: GABAPENTIN 300 MG CAPSULE PO SCH (10:21)
[2020-07-26] MEDS: MULTIVITAMINS 1 CAP CAPSULE PO SCH (10:21)
[2020-07-26] MEDS: LACTOBACILLUS ACIDOPHILUS 1 EACH CAPSULE PO SCH (10:21)
[2020-07-26] MEDS: ENALAPRIL MALEATE 20 MG TABLET PO SCH (10:21)
[2020-07-26] MEDS: BIMATOPROST 25 DROP BTL OP SCH (10:22)
[2020-07-26] MEDS: DEXAMETHASONE SODIUM PHOSP/PF 10 MG/ML VIAL IV SCH (10:22)
[2020-07-26] MEDS: ATENOLOL 100 MG TABLET PO SCH (10:22)
[2020-07-26 15:32] VITALS: BP 136/71
== END 2020-07-26 14:00 | DRG 177 ==
LOC: CCFAL → SCU 15:45
PROVIDERS: ADMIT Family Medicine; ATTEND Family Medicine